=== PATIENT | female | born 1985 | race Hispanic/Latino ===

== ENCOUNTER 2016-09-26 22:15 | Emergency (ER) | payer SELFPAY ==
[~2016-09-26] VITALS: Ht 157.5 cm; Wt 80.0 kg
[~2016-09-26 22:15] MED LIST: PREDNISONE50 MG PO; VENTOLIN HFA18 GM IH; ZITHROMAX Z-PA250 MG PO
[2016-09-26 23:58] LABS: HEMATOCRIT 38.5 % (36.0-46.0); MCH 25.5 PG (29.0-34.0); MCHC 31.9 G/DL (30.0-36.0); MCV 79.9 FL (83-99); PLATELET COUNT 152 K/uL (156-360); RBC DIS.WIDTH-CV 13.6 % (11.8-14.6); RBC DIS.WIDTH-SD 39.7 % (39-53); RED BLOOD COUNT 4.82 M/uL (3.80-5.20); WHITE BLOOD COUNT 7.7 K/uL (4.1-10.2)
[2016-09-27 00:10] LABS: CHLORIDE 109 mEq/L (99-109); POTASSIUM 3.8 mEq/L (3.7-5.4); SODIUM 140 mEq/L (136-147)
[2016-09-27 00:11] LABS: GLUCOSE 105 mg/dL (70-99)
[2016-09-27 00:13] LABS: ANION GAP 10 MEQ/L (2-14)
[2016-09-27 00:15] LABS: GFR ESTIMATE (CALCULATED) > 59 mL/min/
[2016-09-27 00:16] LABS: UREA NITROGEN (BUN) 10 mg/dL (9-23)
[2016-09-27 00:27] LABS: QUANTITATIVE HCG < 4.0 MIU/ML
[2016-09-27 01:00] VITALS: BP 134/77
== END 2016-09-27 01:39 | disposition home or self-care (01) ==
LOC: EME 22:15
PROVIDERS: Emergency Medicine
DX: R51 Headache (principal)
CPT/HCPCS: 80048; 84702; 85027; 99281; 99283; J1100

== ENCOUNTER 2017-06-14 10:12 | Emergency (ER) | payer SELFPAY ==
[~2017-06-14] VITALS: Ht 157.5 cm; Wt 79.7 kg
[2017-06-14] MEDS ORDERED: PROVENTIL,2.5 MG/3 M IH (16:25)
[2017-06-14] MEDS ORDERED: PREDNISONE50 MG PO (16:25)
[2017-06-14] MEDS ORDERED: VENTOLIN HFA18 GM IH (16:25)
[2017-06-14 16:44] VITALS: BP 113/77
== END 2017-06-14 16:46 | disposition home or self-care (01) ==
LOC: RME 10:12 → EME 10:12 → RME 16:46
DX: J45.909 Unspecified asthma, uncomplicated (principal)
CPT/HCPCS: 71046; 94640; 94644; 94664; 99281; 99285; J7512